=== PATIENT | male | born 1960 | race Caucasian/White ===

== ENCOUNTER 2020-09-25 04:28 | Day surgery (SDC) | payer OTHER ==
[2020-09-24 11:27] VITALS: BMI 32.3
[2020-09-25] MEDS ORDERED: BUPIVACAINE LIPOSOME/PF (EXPAREL) 266 MG/20 ML VIAL ONE (07:24)
[2020-09-25] MEDS ORDERED: BUPIVACAINE HCL/PF 0.5% (5MG/ML) 10 ML VIAL ONE (07:24)
[2020-09-25] MEDS ORDERED: MIDAZOLAM HCL 2 MG/2 ML SINGLE DOSE VIAL ONE ×2 (07:25)
[2020-09-25] MEDS ORDERED: LIDOCAINE HCL/PF 2% SDV 5ML VIAL ONE (07:33)
[2020-09-25] MEDS ORDERED: PROPOFOL 20 ML ONE (07:33)
[2020-09-25] MEDS ORDERED: ROCURONIUM BROMIDE 50 MG/5 ML SYRINGE ONE ×2 (07:33→09:18)
[2020-09-25] MEDS ORDERED: DEXAMETHASONE SOD PHOSPHATE 4 MG/1 ML VIAL ONE (07:33)
[2020-09-25] MEDS ORDERED: fentaNYL CITRATE 250 MCG/5 ML VIAL ONE (07:33)
[2020-09-25] MEDS ORDERED: ceFAZolin SODIUM 1 GM VIAL ONE (08:42)
[2020-09-25] MEDS ORDERED: ceFAZolin SODIUM 1 GM VIAL IVPB ONE (08:44)
[2020-09-25] MEDS ORDERED: GLYCOPYRROLATE 0.2 MG/1 ML VIAL ONE (10:08)
[2020-09-25] MEDS ORDERED: NEOSTIGMINE METHYLSULFATE 0.5 MG/ML - 10 ML MDV ONE (10:08)
[2020-09-25] MEDS ORDERED: ONDANSETRON 4 MG/2 ML VIAL IVPUSH PRN (14:05)
[2020-09-25 16:26] VITALS: BP 142/82; PULSE 66; TEMP 98.1
== END 2020-09-25 16:15 | disposition home or self-care (01) ==
LOC: JASU-SURG 04:28
PROVIDERS: ATTEND Surgery
PROC: 8E0W4CZ Robotic Assisted Procedure of Trunk Region, Percutaneous Endoscopic Approach (ICD-10-PCS; 2020-09-25)
PROC: 0WUF4JZ Supplement Abdominal Wall with Synthetic Substitute, Percutaneous Endoscopic Approach (ICD-10-PCS; principal; 2020-09-25 08:00)
DX: K42.0 Umbilical hernia with obstruction, without gangrene (principal)
CPT/HCPCS: 49653; S2900; 94760